=== PATIENT | female | born 1955 | race African-American/Black ===

== ENCOUNTER → 2019-08-15 | Outpatient (CLI) | payer OTHER, BC ==
[~2019-08-15] MED LIST: ALDACTONE25 MG; COZAAR 50 MG TA50 MG; FLEXERIL PO; IBUPROFEN 600600 M1 PO
== END ==
LOC: SJCVC 13:34
DX: R00.1 Bradycardia, unspecified (principal); R94.31 Abnormal electrocardiogram [ECG] [EKG]; E78.00 Pure hypercholesterolemia, unspecified; I12.9 Hypertensive chronic kidney disease with stage 1 through stage 4 chronic kidney disease, or unspecified chronic kidney disease; N18.3 Chronic kidney disease, stage 3 (moderate); R53.83 Other fatigue; Z79.82 Long term (current) use of aspirin; Z79.899 Other long term (current) drug therapy

== ENCOUNTER → 2019-08-22 | Outpatient (CLI) | payer BC, OTHER | LOC: SJCVCIMAG 08:25 | DX: I11.9 Hypertensive heart disease without heart failure (principal); E78.5 Hyperlipidemia, unspecified ==

== ENCOUNTER → 2019-10-04 | Outpatient (CLI) | payer OTHER | LOC: CAT 12:04 → SJCVC 12:04 | PROVIDERS: ATTEND Internal Medicine Cardiovascular Disease | DX: R94.31 Abnormal electrocardiogram [ECG] [EKG] (principal); I12.9 Hypertensive chronic kidney disease with stage 1 through stage 4 chronic kidney disease, or unspecified chronic kidney disease; I47.1 Supraventricular tachycardia; N18.3 Chronic kidney disease, stage 3 (moderate); Z79.899 Other long term (current) drug therapy; Z90.710 Acquired absence of both cervix and uterus ==

== ENCOUNTER → 2020-04-10 | Outpatient (CLI) | payer OTHER, BC | LOC: SJCVC 14:41 | PROVIDERS: ATTEND Internal Medicine Cardiovascular Disease | DX: I15.0 Renovascular hypertension (principal); R09.89 Other specified symptoms and signs involving the circulatory and respiratory systems; I70.1 Atherosclerosis of renal artery; E78.00 Pure hypercholesterolemia, unspecified; R00.2 Palpitations; N18.30 Chronic kidney disease, stage 3 unspecified; R53.83 Other fatigue; Z79.82 Long term (current) use of aspirin; Z79.899 Other long term (current) drug therapy ==

== ENCOUNTER → 2020-04-18 | Outpatient (CLI) | payer OTHER, BC ==
[~2020-04-18] VITALS: Ht 152.4 cm; Wt 77.1 kg
[~2020-04-18] MED LIST changes: +ASA81BEC PO; +BENICAR40 MG PO; +CHLORTHALIDONE50 MG PO; +KLOR-CON 10 ER10 MEQ PO; +NEXIUM 40 MG CA40 M1 PO; +NORVASC 2.5 MG2.5 M1 PO; +PLAVIX 75 MG TA75 MG PO; +VITAMIN B-121000 MC2 PO; +VITAMIN D310 MC2 PO
[2020-04-18 07:04] VITALS: BP 140/79
[2020-04-18 07:57] LABS: HEMATOCRIT 40.8 % (37.0-47.0); HEMOGLOBIN 13.2 gm/dL (12.0-15.0); MCH 28.8 pg (26.0-34.0); MCHC 32.3 g/dL (28.0-37.0); MCV 89.1 fL (80.0-100.0); RBC 4.58 mil/uL (4.20-5.00); RDW 14.1 % (10.5-14.5); WBC 5.6 thou/uL (4.0-11.0)
[2020-04-18 08:00] LABS: CALCIUM 9.9 mg/dL (8.5-10.1)
[2020-04-18 08:05] LABS: POTASSIUM 2.9 mmol/L (3.5-5.1)
== END | disposition home or self-care (01) ==
LOC: CATH 06:49
PROVIDERS: ATTEND Nuclear Medicine Nuclear Cardiology
DX: I77.3 Arterial fibromuscular dysplasia (principal); I70.0 Atherosclerosis of aorta; I73.9 Peripheral vascular disease, unspecified; I12.9 Hypertensive chronic kidney disease with stage 1 through stage 4 chronic kidney disease, or unspecified chronic kidney disease; N18.9 Chronic kidney disease, unspecified; E78.00 Pure hypercholesterolemia, unspecified; K21.9 Gastro-esophageal reflux disease without esophagitis; E66.09 Other obesity due to excess calories; Z98.890 Other specified postprocedural states; Z79.899 Other long term (current) drug therapy; Z90.710 Acquired absence of both cervix and uterus; Z88.2 Allergy status to sulfonamides; Z88.8 Allergy status to other drugs, medicaments and biological substances

== ENCOUNTER → 2020-07-26 | Outpatient (CLI) | payer OTHER, BC | LOC: SJCVCIMAG 08:25 | PROVIDERS: ATTEND Internal Medicine Cardiovascular Disease | DX: I65.21 Occlusion and stenosis of right carotid artery (principal); R94.31 Abnormal electrocardiogram [ECG] [EKG]; R00.1 Bradycardia, unspecified; I73.9 Peripheral vascular disease, unspecified; M79.605 Pain in left leg; I70.1 Atherosclerosis of renal artery; I12.9 Hypertensive chronic kidney disease with stage 1 through stage 4 chronic kidney disease, or unspecified chronic kidney disease; N18.9 Chronic kidney disease, unspecified; I77.3 Arterial fibromuscular dysplasia; E78.00 Pure hypercholesterolemia, unspecified; R00.2 Palpitations; K21.9 Gastro-esophageal reflux disease without esophagitis; Z90.710 Acquired absence of both cervix and uterus; Z98.890 Other specified postprocedural states; Z88.8 Allergy status to other drugs, medicaments and biological substances; Z79.82 Long term (current) use of aspirin; Z79.899 Other long term (current) drug therapy; Z82.49 Family history of ischemic heart disease and other diseases of the circulatory system ==

== ENCOUNTER → 2021-02-12 | Outpatient (CLI) | payer OTHER, BC | LOC: SJCVCIMAG 10:28 | PROVIDERS: ATTEND Internal Medicine Cardiovascular Disease | DX: R94.31 Abnormal electrocardiogram [ECG] [EKG] (principal); I12.9 Hypertensive chronic kidney disease with stage 1 through stage 4 chronic kidney disease, or unspecified chronic kidney disease; I77.3 Arterial fibromuscular dysplasia; N18.9 Chronic kidney disease, unspecified; E78.00 Pure hypercholesterolemia, unspecified; I87.2 Venous insufficiency (chronic) (peripheral); K21.9 Gastro-esophageal reflux disease without esophagitis; I25.2 Old myocardial infarction; Z88.5 Allergy status to narcotic agent; Z88.2 Allergy status to sulfonamides; Z88.8 Allergy status to other drugs, medicaments and biological substances ==